=== PATIENT | male | born 1935 | race Caucasian/White ===

== ENCOUNTER → 2018-07-21 | Outpatient (CLI) | payer MEDICARE, MEDICAID ==
--- NOTE | 2018-07-21 10:23 | Diagnostic Imaging Report ---
Right upper extremity venous Doppler. Indication: Arm pain and swelling. Spectral color flow imaging of the deep venous system was performed. The venous system was visualized from the internal jugular vein to the radial and ulnar veins. There are no prior studies available for comparison. Estimated blood flow and compressibility at all levels. There is no sign of a deep venous thrombosis. Impression: There is no evidence for a deep venous thrombosis of the right upper extremity. Dictated by: Dictated on workstation # [id number]
== END ==
LOC: RAD 09:06
PROVIDERS: ATTEND Pediatrics
DX: M79.89 Other specified soft tissue disorders (principal)